=== PATIENT | female | born 1925 | race Caucasian/White ===

== ENCOUNTER 2016-08-17 03:37 | Observation (INO) | payer OTHER ==
[~2016-08-17] VITALS: Ht 152.4 cm; Wt 67.4 kg
[~2016-08-17 03:37] MED LIST: ACIPHEX20 MG PO; AMLODIPINE BESY10 MG PO; ARAVA10 MG PO; ASPIRIN81 M1 PO; CALTRATE 6001 TABLET PO; CENTRUM SILVER1 EAC3 PO; CLONIDINE HCL0.1 MG PO; CLOPIDOGREL75 MG PO; Calcium Carbonate,Ca PO; Cozaar PO; DIOVAN80 MG PO; EVISTA60 MG PO; Imdur PO; LASIX20 MG PO; LIPITOR40 MG PO; METOPROLOL SUCC25 MG PO; MURO-128 OPHTH3.5 GM RIGHT EYE; NITROSTAT0.4 MG SL; Nitrostat,NitroQuick SL; PANTOPRAZOLE SO40 MG PO; REFRESH OPTIVE10 ML BOTH EYES; Rocaltrol PO; TYLENOL ARTHRI650 M2; TYLENOL REGULA325 MG PO; Toprol XL PO; VITAMIN D2000 UNIT PO; XALATAN2.5 ML BOTH EYES; ZANTAC150 MG PO; ZOFRAN ODT4 MG PO; [UNRECOGNIZED DRUG - OTHER]
[2016-08-17 04:24] LABS: HEMATOCRIT 32.3 % (36.0-46.0); MCHC 31.3 G/DL (30.0-36.0); MCV 95.8 FL (83-99); MEAN PLAT.VOLUME 9.8 uM^3 (9.5-12.4); PLATELET COUNT 239 K/uL (156-360); RBC DIS.WIDTH-CV 14.1 % (11.8-14.6); RBC DIS.WIDTH-SD 49.9 % (39-53); RED BLOOD COUNT 3.37 M/uL (3.80-5.20)
[2016-08-17 04:35] LABS: CHLORIDE 110 mEq/L (99-109); SODIUM 143 mEq/L (136-147)
[2016-08-17 04:37] LABS: GLUCOSE 111 mg/dL (70-99)
[2016-08-17 04:39] LABS: ANION GAP 10 MEQ/L (2-14)
[2016-08-17 04:41] LABS: GFR ESTIMATE (CALCULATED) 45 mL/min/
[2016-08-17 04:42] LABS: UREA NITROGEN (BUN) 31 mg/dL (9-23)
[2016-08-17 04:45] LABS: TROP-I INTERPRETATION NEGATIVE; TROPONIN-I < 0.01 ng/mL (0.0-0.30)
[2016-08-17] MEDS ORDERED: CALCITRIOL0.25 MCG PO (06:09)
[2016-08-17] MEDS ORDERED: LASIX20 MG PO (06:10)
[2016-08-17] MEDS ORDERED: EVISTA60 MG PO (06:11)
[2016-08-17 07:47] VITALS: BP 173/73
[2016-08-17] MEDS ORDERED: DUREZOL 0.100 DROP/5 LEFT EYE (08:39)
[2016-08-17] MEDS ORDERED: PROLENSA1.6 ML LEFT EYE (08:39)
[2016-08-17] MEDS ORDERED: BESIVANCE5 ML LEFT EYE (08:42)
[2016-08-17 09:05] VITALS: BP 156/69
[2016-08-17 11:35] LABS: Estimated Average Glucose 134 mg/dL (70-123); HEMOGLOBIN A1c (GLYCOHEMOGLOB) 6.3 % HGB (Below 5.7)
[2016-08-17 11:38] LABS: TROP-I INTERPRETATION NEGATIVE; TROPONIN-I 0.02 ng/mL (0.0-0.30)
[2016-08-17 11:39] LABS: HDL CHOLESTEROL 34 MG/DL (Desirable>=50); LDL CHOLESTEROL 53 mg/dL (Desirable<100); NON-HDL CHOLESTEROL 76 mg/dL (Desirable<160); TOTAL CHOLESTEROL 110 mg/dL (Desirable<200); TRIGLYCERIDES 113 MG/DL (Normal: <150)
[2016-08-17 12:03] VITALS: BP 147/64
[2016-08-17] MEDS ORDERED: PANTOPRAZOLE SO40 MG PO (12:44)
[2016-08-17] MEDS ORDERED: APRESOLINE25 MG PO (12:44)
[2016-08-17 17:07] VITALS: BP 153/67
[2016-08-17 18:01] VITALS: BP 131/61
[2016-08-17 18:18] LABS: TROP-I INTERPRETATION NEGATIVE; TROPONIN-I 0.02 ng/mL (0.0-0.30)
== END 2016-08-17 20:29 | disposition home or self-care (01) ==
LOC: EME 03:37 → EDOF 05:41 → 5WEST 07:12
PROVIDERS: Emergency Medicine; Physician Assistant Medical
DX: R07.2 Precordial pain (principal); I16.0 Hypertensive urgency; I25.2 Old myocardial infarction; Z95.1 Presence of aortocoronary bypass graft; I50.9 Heart failure, unspecified; E78.5 Hyperlipidemia, unspecified; K21.9 Gastro-esophageal reflux disease without esophagitis; Z79.82 Long term (current) use of aspirin; I25.10 Atherosclerotic heart disease of native coronary artery without angina pectoris; I25.810 Atherosclerosis of coronary artery bypass graft(s) without angina pectoris; I25.82 Chronic total occlusion of coronary artery; N18.3 Chronic kidney disease, stage 3 (moderate); E11.22 Type 2 diabetes mellitus with diabetic chronic kidney disease; I13.0 Hypertensive heart and chronic kidney disease with heart failure and stage 1 through stage 4 chronic kidney disease, or unspecified chronic kidney disease; Z79.02 Long term (current) use of antithrombotics/antiplatelets; Z95.5 Presence of coronary angioplasty implant and graft; E78.00 Pure hypercholesterolemia, unspecified; M81.0 Age-related osteoporosis without current pathological fracture
CPT/HCPCS: 71010; 80048; 80061; 83036; 84484; 85027; 93005; G0378; J0360; J1644

== ENCOUNTER 2016-09-20 13:34 | Emergency (ER) | payer OTHER ==
[~2016-09-20] VITALS: Ht 152.4 cm; Wt 65.6 kg
[~2016-09-20 13:34] MED LIST changes: +APRESOLINE25 MG PO; +BESIVANCE5 ML LEFT EYE; +CALCITRIOL0.25 MCG PO; +DUREZOL 0.100 DROP/5 LEFT EYE; +PROLENSA1.6 ML LEFT EYE
[2016-09-20 16:10] VITALS: BP 176/68
== END 2016-09-20 16:10 | disposition home or self-care (01) ==
LOC: EME → EDBD 13:34 → EME 13:34
DX: S06.0X0A Concussion without loss of consciousness, initial encounter (principal); V48.4XXA Person boarding or alighting a car injured in noncollision transport accident, initial encounter; E78.5 Hyperlipidemia, unspecified; I10 Essential (primary) hypertension; I25.2 Old myocardial infarction; K21.9 Gastro-esophageal reflux disease without esophagitis; Z95.1 Presence of aortocoronary bypass graft; Z79.82 Long term (current) use of aspirin
CPT/HCPCS: 70450; 99281; 99284

== ENCOUNTER 2016-09-28 10:18 | Observation (INO) | payer OTHER ==
[~2016-09-28] VITALS: Ht 152.4 cm; Wt 66.8 kg
[2016-09-28 11:15] LABS: BASOPHIL COUNT 0.1 K/uL (0-0.1); EOSINOPHIL (%) 1.9 % (0-5); EOSINOPHIL COUNT 0.1 K/uL (0-0.3); HEMATOCRIT 35.3 % (36.0-46.0); IMMATURE GRANULOCYTE (%) 0.3 % (0.0-0.7); LYMPHOCYTE COUNT 1.1 K/uL (1.0-2.8); MCH 30.1 PG (29.0-34.0); MCHC 31.2 G/DL (30.0-36.0); MCV 96.4 FL (83-99); MEAN PLAT.VOLUME 9.7 uM^3 (9.5-12.4); MONOCYTE COUNT 0.6 K/uL (0-0.8); NEUTROPHIL (%) 68.8 % (45-76); PLATELET COUNT 273 K/uL (156-360); RBC DIS.WIDTH-CV 14.7 % (11.8-14.6); RBC DIS.WIDTH-SD 52.5 % (39-53); RED BLOOD COUNT 3.66 M/uL (3.80-5.20); WHITE BLOOD COUNT 5.8 K/uL (4.1-10.2)
[2016-09-28 11:25] LABS: CHLORIDE 109 mEq/L (99-109); POTASSIUM 3.9 mEq/L (3.7-5.4); SODIUM 141 mEq/L (136-147)
[2016-09-28 11:26] LABS: GLUCOSE 111 mg/dL (70-99)
[2016-09-28 11:28] LABS: ANION GAP 8 MEQ/L (2-14)
[2016-09-28 11:30] LABS: GFR ESTIMATE (CALCULATED) 38 mL/min/
[2016-09-28 11:31] LABS: UREA NITROGEN (BUN) 19 mg/dL (9-23)
[2016-09-28 13:14] LABS: ADD MIUA? NO; BILIRUBIN NEGATIVE; BLOOD NEGATIVE; COLOR STRAW ((YELLOW)); GLUCOSE (STRIP) NEGATIVE; KETONES NEGATIVE; LEUKOCYTES NEGATIVE; NITRITE NEGATIVE; PROTEIN (STRIP) NEGATIVE; SPECIFIC GRAVITY 1.006 (1.000-1.030); UCUL ADDED? NO; UROBILINOGEN 0.2 MG/DL (0.2-1.0)
[2016-09-28] MEDS ORDERED: CARAFATE1 GM PO (14:32)
[2016-09-28] MEDS ORDERED: NITROSTAT0.4 MG SL (14:33)
[2016-09-28] MEDS ORDERED: ORENCIA250 MG/10 IV (14:33)
[2016-09-28] MEDS ORDERED: TYLENOL EXTRA500 MG PO (14:33)
[2016-09-28 15:49] LABS: TROP-I INTERPRETATION NEGATIVE; TROPONIN-I 0.02 ng/mL (0.0-0.30)
[2016-09-28 16:06] VITALS: BP 198/84
[2016-09-28 19:30] VITALS: BP 162/77
[2016-09-28 22:32] LABS: TROPONIN-I 0.02 ng/mL (0.0-0.30)
[2016-09-28 22:39] LABS: TROP-I INTERPRETATION NEGATIVE
[2016-09-29 00:15] VITALS: BP 175/75
[2016-09-29 02:42] LABS: POINT-OF-CARE METER ID UU14162513
[2016-09-29 04:45] VITALS: BP 160/64
[2016-09-29 05:20] LABS: HEMATOCRIT 32.6 % (36.0-46.0); MCH 31.4 PG (29.0-34.0); MCHC 32.2 G/DL (30.0-36.0); MCV 97.6 FL (83-99); MEAN PLAT.VOLUME 9.8 uM^3 (9.5-12.4); PLATELET COUNT 248 K/uL (156-360); RBC DIS.WIDTH-CV 14.9 % (11.8-14.6); RBC DIS.WIDTH-SD 53.1 % (39-53); RED BLOOD COUNT 3.34 M/uL (3.80-5.20); WHITE BLOOD COUNT 6.5 K/uL (4.1-10.2)
[2016-09-29 05:35] LABS: HDL CHOLESTEROL 36 MG/DL (Desirable>=50); LDL CHOLESTEROL 53 mg/dL (Desirable<100); NON-HDL CHOLESTEROL 75 mg/dL (Desirable<160); TOTAL CHOLESTEROL 111 mg/dL (Desirable<200); TRIGLYCERIDES 109 MG/DL (Normal: <150)
[2016-09-29 05:40] LABS: TROPONIN-I 0.01 ng/mL (0.0-0.30)
[2016-09-29 05:43] LABS: TROP-I INTERPRETATION NEGATIVE
[2016-09-29 06:54] LABS: Estimated Average Glucose 128 mg/dL (70-123); HEMOGLOBIN A1c (GLYCOHEMOGLOB) 6.1 % HGB (Below 5.7)
[2016-09-29 07:20] VITALS: BP 187/78
[2016-09-29 12:11] VITALS: BP 170/75
== END 2016-09-29 16:18 | disposition home or self-care (01) ==
LOC: EME 10:18 → 5WEST 12:59 → EDOF 12:59 → ENRESERV 13:00 → 5WEST 16:06
PROVIDERS: Emergency Medicine; Hospitalist
DX: R42 Dizziness and giddiness (principal); R51 Headache; R26.9 Unspecified abnormalities of gait and mobility; Z91.81 History of falling; R94.31 Abnormal electrocardiogram [ECG] [EKG]; R10.13 Epigastric pain; I25.118 Atherosclerotic heart disease of native coronary artery with other forms of angina pectoris; Z95.1 Presence of aortocoronary bypass graft; E78.5 Hyperlipidemia, unspecified; Z95.0 Presence of cardiac pacemaker; I12.9 Hypertensive chronic kidney disease with stage 1 through stage 4 chronic kidney disease, or unspecified chronic kidney disease; E11.22 Type 2 diabetes mellitus with diabetic chronic kidney disease; N18.3 Chronic kidney disease, stage 3 (moderate); Z85.820 Personal history of malignant melanoma of skin; Z79.82 Long term (current) use of aspirin; Z88.8 Allergy status to other drugs, medicaments and biological substances; Z91.041 Radiographic dye allergy status
CPT/HCPCS: 70450; 70551; 80048; 80061; 81003; 82948; 83036; 84484; 85025; 85027; 93005; 93880; 99281; 99285; G0378; G8978 GP CI; G8979 GP CH; G8987 GO CH; G8988 GO CH; G8989 GO CH; J2270; J7030